=== PATIENT | female | born 1995 | race Caucasian/White ===

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

== ENCOUNTER → 2017-03-23 | Outpatient (CLI) | payer MEDICAID ==
--- NOTE | 2017-03-23 18:02 | REP ---
FOLLOWUP OB ULTRASOUND: 03/23/2017. Comparison: 02/23/2017. Clinical history: Incomplete anatomy screen. Evaluate for the anatomy structures not well seen on prior study. Findings: Sonographic evaluation of the gravid uterus shows a single intrauterine gestation in vertex position. Cervix is 3.6 cm long and closed. Amniotic fluid volume is subjectively normal. There is an anterior placenta with grade 0 maturation characteristics and no previa or abruption. biometry: BPD 6 cm = 24 weeks 3 days HC 22.5 cm = 24 weeks 4 days AC 18.8 cm = 23 weeks 4 days FL 4.2 cm = 23 5 days HL 3.5 cm = 22 weeks 1 day This gives average ultrasound age of 23 weeks 5 days, which precisely matches initial ultrasound dating with EDC 07/15/2017. Estimated weight 63 grams or 1 pound 5 ounces is 64th percentile for dating based on LMP. Anatomy screen shows heart rate 136 and regular. The facial profile view was well seen but the nose and lips view still not seen. The ventricular outflow tracts are well seen and grossly unremarkable. The spine is again incompletely evaluated due to position. The right adnexal region shows a small corpus luteum cyst. Impression: 1. Single intrauterine gestation in vertex presentation with cervix 3.6 cm long and closed, anterior grade 0 placenta without previa or abruption and visually normal amniotic fluid. 2. Heart 136 and regular and size and dates show normal interval growth. 3. Anatomy screen shows a facial profile visualized as are the ventricular outflow tracts, but the upper lip and spine are not well seen. Signed by Kayden Godwin MD 03/23/2017 07:47 P
== END ==
LOC: M RAD 14:17
PROVIDERS: ATTEND Obstetrics & Gynecology
DX: Z34.82 Encounter for supervision of other normal pregnancy, second trimester (principal); Z3A.23 23 weeks gestation of pregnancy

== ENCOUNTER 2017-04-14 00:54 | Emergency (ER) | payer MEDICAID | END 2017-04-14 01:35 | disposition admitted as inpatient to this hospital (09) | LOC: M ED 01:35 | DX: Z53.29 Procedure and treatment not carried out because of patient's decision for other reasons (principal) ==

== ENCOUNTER 2017-04-14 01:19 | Outpatient (CLI) | payer MEDICAID ==
[2017-04-14] MEDS: ONDANSETRON 4 MG ORAL DISINTEGRATING TAB (S0181) SL (02:20)
[2017-04-14 03:34] LABS: MEAN CORPUSCULAR HEMOGLOBIN 30.2 pg (27.0-33.0); MEAN CORPUSCULAR VOLUME 88.9 fl (80.0-96.0); PLATELET COUNT, AUTOMATED 287 10^3/uL (150-450); RED CELL DISTRIBUTION WIDTH 12.7 % (11.5-14.5); WHITE BLOOD COUNT 12.1 10^3/uL (4.0-10.0)
[2017-04-14 03:57] LABS: ALBUMIN 2.8 GM/DL (3.2-5.2); ALKALINE PHOSPHATASE 128 U/L (45-117); ALT/SGPT 24 U/L (12-78); AMYLASE 56 U/L (25-115); AST/SGOT 19 U/L (7-37); BILIRUBIN,DIRECT 0.1 MG/DL (0.0-0.2); BILIRUBIN,TOTAL 0.3 MG/DL (0.2-1.0); TOTAL PROTEIN 6.8 GM/DL (6.4-8.2)
== END 2017-04-14 04:15 | disposition home or self-care (01) ==
LOC: M LDO 01:19
DX: O99.89 Other specified diseases and conditions complicating pregnancy, childbirth and the puerperium (principal); R10.11 Right upper quadrant pain; O21.8 Other vomiting complicating pregnancy; O99.612 Diseases of the digestive system complicating pregnancy, second trimester; K82.8 Other specified diseases of gallbladder; O26.612 Liver and biliary tract disorders in pregnancy, second trimester; O99.282 Endocrine, nutritional and metabolic diseases complicating pregnancy, second trimester; Z3A.26 26 weeks gestation of pregnancy
CPT/HCPCS: 76705

== ENCOUNTER 2017-04-14 20:44 | Outpatient (CLI) | payer MEDICAID ==
[2017-04-14] MEDS ORDERED: LACTATED RINGER'S 1000 ML IV (20:58)
[2017-04-14] MEDS ORDERED: LR 1,000 ML IV (21:00)
[2017-04-14 21:59] LABS: BASO % 0.1 % (0.0-1.0); EOS % 0.1 % (0.0-3.0); IMMATURE GRANULOCYTE % 0.4 % (0-0); LYMPH % 14.1 % (24.0-44.0); MEAN CORPUSCULAR HEMOGLOBIN 30.4 pg (27.0-33.0); MEAN CORPUSCULAR HGB CONC 34.3 g/dl (32.0-36.5); MEAN CORPUSCULAR VOLUME 88.9 fl (80.0-96.0); MONO # 0.5 10^3/uL (0.0-0.8); MONO % 7.8 % (0.0-5.0); NEUTROPHILS # 5.4 10^3/uL (1.8-7.7); NEUTROPHILS % 77.5 % (36.0-66.0); PLATELET COUNT, AUTOMATED 259 10^3/uL (150-450); RED CELL DISTRIBUTION WIDTH 12.6 % (11.5-14.5); WHITE BLOOD COUNT 6.9 10^3/uL (4.0-10.0)
[2017-04-14 22:29] LABS: ALBUMIN 2.6 GM/DL (3.2-5.2); ALBUMIN/GLOBULIN RATIO 0.72 (1.00-1.93); ALKALINE PHOSPHATASE 121 U/L (45-117); ALT/SGPT 21 U/L (12-78); ANION GAP 9 MEQ/L (8-16); AST/SGOT 17 U/L (7-37); BILIRUBIN,TOTAL 0.5 MG/DL (0.2-1.0); BLOOD UREA NITROGEN 6 MG/DL (7-18); CALCIUM LEVEL 7.7 MG/DL (8.5-10.1); CARBON DIOXIDE LEVEL 24 MEQ/L (21-32); CHLORIDE LEVEL 107 MEQ/L (98-107); CREATININE FOR GFR 0.44 MG/DL (0.55-1.02); GLUCOSE, FASTING 69 MG/DL (70-105); POTASSIUM SERUM 3.5 MEQ/L (3.5-5.1); SODIUM LEVEL 140 MEQ/L (136-145); TOTAL PROTEIN 6.2 GM/DL (6.4-8.2)
[2017-04-14] MEDS: FAMOTIDINE 20 MG TAB PO (23:14)
== END 2017-04-15 00:01 | disposition home or self-care (01) ==
LOC: M LDO 20:44
DX: O99.89 Other specified diseases and conditions complicating pregnancy, childbirth and the puerperium (principal); R10.9 Unspecified abdominal pain; O21.2 Late vomiting of pregnancy; O26.613 Liver and biliary tract disorders in pregnancy, third trimester; K83.8 Other specified diseases of biliary tract; K82.9 Disease of gallbladder, unspecified; Z3A.26 26 weeks gestation of pregnancy
CPT/HCPCS: 59025

== ENCOUNTER → 2017-04-15 | Outpatient (CLI) | payer MEDICAID | LOC: M RAD 14:29 | DX: Z36.2 Encounter for other antenatal screening follow-up (principal) | CPT/HCPCS: 76817 ==

== ENCOUNTER → 2017-04-20 | Outpatient (CLI) | payer MEDICAID ==
[2017-04-20 12:24] LABS: GLUCOSE CHALLENGE TEST 1 HOUR 111 MG/DL (LESS THAN 140)
[2017-04-20 12:26] LABS: BASO % 0.1 % (0.0-1.0); EOS # 0.1 10^3/uL (0.0-0.50); EOS % 0.9 % (0.0-3.0); HEMATOCRIT 36.8 % (36.0-47.0); HEMOGLOBIN 12.4 g/dl (12.0-16.0); IMMATURE GRANULOCYTE % 0.5 % (0-0); LYMPH # 1.8 10^3/uL (1.5-6.5); LYMPH % 22.9 % (24.0-44.0); MEAN CORPUSCULAR HEMOGLOBIN 30.2 pg (27.0-33.0); MEAN CORPUSCULAR HGB CONC 33.7 g/dl (32.0-36.5); MEAN CORPUSCULAR VOLUME 89.5 fl (80.0-96.0); MONO # 0.4 10^3/uL (0.0-0.8); MONO % 5.7 % (0.0-5.0); NEUTROPHILS # 5.4 10^3/uL (1.8-7.7); NEUTROPHILS % 69.9 % (36.0-66.0); PLATELET COUNT, AUTOMATED 324 10^3/uL (150-450); RED BLOOD COUNT 4.11 10^6/uL (4.00-5.40); RED CELL DISTRIBUTION WIDTH 12.7 % (11.5-14.5); WHITE BLOOD COUNT 7.8 10^3/uL (4.0-10.0)
== END ==
LOC: M SMT 08:22
DX: Z34.83 Encounter for supervision of other normal pregnancy, third trimester (principal)
CPT/HCPCS: 82950

== ENCOUNTER → 2017-05-12 | Outpatient (CLI) | payer OTHER | LOC: M RAD 07:34 | DX: Z34.82 Encounter for supervision of other normal pregnancy, second trimester (principal); Z3A.30 30 weeks gestation of pregnancy | CPT/HCPCS: 76816 ==

== ENCOUNTER → 2017-06-22 | Outpatient (REF) | payer OTHER | LOC: M LAB REF 17:16 | DX: Z34.83 Encounter for supervision of other normal pregnancy, third trimester (principal) ==

== ENCOUNTER 2017-07-16 18:22 | Inpatient (IN) | payer OTHER ==
[2017-07-16] MEDS ORDERED: FENTANYL 2MCG/ML ROPIVACAINE 0.2% IN 0.9% NACL 200ML IVBAG As Ordered (20:44)
[2017-07-16 20:45] LABS: HEMATOCRIT 37.1 % (36.0-47.0); HEMOGLOBIN 12.2 g/dl (12.0-15.5); MEAN CORPUSCULAR HGB CONC 32.9 g/dl (32.0-36.5); MEAN CORPUSCULAR VOLUME 85.3 fl (80.0-96.0); PLATELET COUNT, AUTOMATED 353 10^3/uL (150-450); RED BLOOD COUNT 4.35 10^6/uL (4.00-5.40); RED CELL DISTRIBUTION WIDTH 12.7 % (11.5-14.5); WHITE BLOOD COUNT 11.3 10^3/uL (4.0-10.0)
[2017-07-16] MEDS ORDERED: ePHEDrine SULFATE 25 MG/5 ML(5MG/ML) SYRINGE As Ordered (22:10)
[2017-07-16] MEDS: OXYTOCIN DRIP 30 UNITS in APPROPRIATE DILUENT 1 EA IV (22:18)
[2017-07-16] MEDS: LACTATED RINGER'S 1000 ML IV (22:18)
[2017-07-16] MEDS: ePHEDrine SULFATE 25 MG/5 ML(5MG/ML) SYRINGE IV (22:18)
[2017-07-16] MEDS ORDERED: REFRIGERATOR IV KEYS XX (22:30)
[2017-07-16] MEDS ORDERED: NALOXONE INJ 0.4 MG/1 ML VIAL (J2310) IV (22:30)
[2017-07-16] MEDS ORDERED: EPIDURAL/PCA KEYS XX (22:30)
[2017-07-16] MEDS ORDERED: LACTATED RINGER'S 1000 ML IV (22:30)
[2017-07-16] MEDS ORDERED: diphenhydrAMINE INJ 50MG/ML VIAL (J1200) IV (22:30)
[2017-07-16] MEDS ORDERED: FENTANYL/ROPIVACAINE/NACL BAG 200 ML EPIDURAL (22:30)
[2017-07-16] MEDS ORDERED: EPIDURAL COMMENT XX (22:30)
[2017-07-16] MEDS ORDERED: ONDANSETRON 4MG/2ML VIAL (J2405) IV (22:30)
[2017-07-16] MEDS: LR 1,000 ML IV (23:27)
[2017-07-17 03:21] LABS: CORD GAS ABE A -9.9; CORD GAS ABE V -5.7; CORD GAS HCO3 V 21.5 MEQ/L; CORD GAS O2 SAT A 32.3 %; CORD GAS O2 SAT V 48.1 %; CORD GAS PCO2 A 66.7 mmHg; CORD GAS PCO2 V 48.1 mmHg; CORD GAS PH A 7.116 UNITS; CORD GAS PH V 7.269 UNITS; CORD GAS PO2 A 20.4 mmHg; CORD GAS PO2 V 22.6 mmHg; CORD GAS SBC A 15.3 MEQ/L; CORD GAS SBC V 18.6 MEQ/L
[2017-07-17] MEDS ORDERED: METHYLERGONOVINE MALEATE 0.2 MG TAB PO (03:30)
[2017-07-17] MEDS ORDERED: RHOGAM 300 MCG (1500 IU) INJ (J2790) IM (03:30)
[2017-07-17] MEDS ORDERED: MEASLES,MUMPS,RUBELLA VACCINE INJ (MMR-II) (90707) SC (03:30)
[2017-07-17] MEDS: IBUPROFEN 800 MG TAB PO ×2 (05:51→17:05)
[2017-07-17] MEDS: DIBUCAINE 1% OINTMENT 30GM TOP (05:52)
[2017-07-17] MEDS: PRENATAL VITAMINS CHEWABLE TABLET PO (08:11)
[2017-07-17] MEDS: ACETAMINOPHEN 500 MG TAB PO ×2 (08:12→21:58)
[2017-07-17] MEDS: OXYTOCIN DRIP 30 UNITS in APPROPRIATE DILUENT 1 EA IV (19:27)
[2017-07-18] MEDS: IBUPROFEN 800 MG TAB PO ×3 (04:55→14:17)
[2017-07-18] MEDS: PRENATAL VITAMINS CHEWABLE TABLET PO (09:16)
[2017-07-18] MEDS: DOCUSATE SODIUM 100 MG CAP PO (12:22)
[2017-07-18] MEDS ORDERED: MOM 30ML SUSPENSION UDC PO (14:15)
[2017-07-19] MEDS: IBUPROFEN 800 MG TAB PO (05:25)
[2017-07-19] MEDS: PRENATAL VITAMINS CHEWABLE TABLET PO (09:43)
== END 2017-07-19 11:03 | disposition home or self-care (01) | DRG 560 ==
LOC: M LDO 18:22 → M OBS 07-17 04:58 → M LDI 19:21
PROVIDERS: Advanced Practice Midwife
PROC: 10E0XZZ Delivery of Products of Conception, External Approach (ICD-10-PCS; principal; 2017-07-17)
PROC: 0KQM0ZZ Repair Perineum Muscle, Open Approach (ICD-10-PCS; 2017-07-17)
DX: O69.81X0 Labor and delivery complicated by cord around neck, without compression, not applicable or unspecified (principal); O70.1 Second degree perineal laceration during delivery; Z37.0 Single live birth; Z3A.39 39 weeks gestation of pregnancy

== ENCOUNTER → 2018-03-24 | Outpatient (REF) | payer OTHER | LOC: M LAB REF 17:12 | DX: Z12.4 Encounter for screening for malignant neoplasm of cervix (principal); R87.610 Atypical squamous cells of undetermined significance on cytologic smear of cervix (ASC-US); N76.0 Acute vaginitis | CPT/HCPCS: 88142 ==

== ENCOUNTER 2018-05-08 04:25 | Emergency (ER) | payer OTHER ==
[~2018-05-08] VITALS: Ht 165.1 cm; Wt 109.1 kg
[~2018-05-08 04:25] MED LIST changes: +IBUP-1114 PO; +MAPA500T2 PO; +PRENTAB9 PO
[2018-05-08 04:33] VITALS: BP 116/71
[2018-05-08] MEDS ORDERED: KETOROLAC 60 MG/2 ML VIAL (J1885) IM ONE (05:00)
--- NOTE | 2018-05-08 13:54 | REP ---
Clinical: Trauma/injury. Technique: AP, lateral, bilateral oblique views of the right ankle. Findings: No acute fracture or dislocation. Skeletal structures and joint spaces are intact and normal. Ankle mortise appears stable. No subcutaneous emphysema or radiodense foreign body. Impression: Normal right ankle radiograph series. Electronically Signed by Vance Pruitt MD 05/08/2018 01:45 P
== END 2018-05-08 05:17 | disposition home or self-care (01) ==
LOC: M ED 05:13
DX: S93.401A Sprain of unspecified ligament of right ankle, initial encounter (principal); X50.9XXA Other and unspecified overexertion or strenuous movements or postures, initial encounter; Y92.410 Unspecified street and highway as the place of occurrence of the external cause; Y93.89 Activity, other specified; J45.909 Unspecified asthma, uncomplicated
CPT/HCPCS: 73610; 96372; 99284; J1885

== ENCOUNTER → 2018-07-24 | Outpatient (REF) | payer OTHER ==
[2018-07-24 14:10] LABS: INFLUENZA A AMPLIFICATION NEGATIVE (NEGATIVE); INFLUENZA B AMPLIFICATION NEGATIVE (NEGATIVE)
== END ==
LOC: M LAB REF 12:57
PROVIDERS: ATTEND Physician Assistant Medical
DX: J11.1 Influenza due to unidentified influenza virus with other respiratory manifestations (principal)

== ENCOUNTER → 2019-08-14 | Outpatient (REF) | payer BC | LOC: M SFHCWAGY 10:31 | PROVIDERS: ATTEND Advanced Practice Midwife | DX: Z01.419 Encounter for gynecological examination (general) (routine) without abnormal findings (principal) ==

== ENCOUNTER 2019-09-04 22:31 | Inpatient (IN) | payer BC, OTHER ==
[~2019-09-04] VITALS: Ht 165.1 cm; Wt 104.5 kg
[2019-09-04 22:55] LABS: HEMATOCRIT 40.7 % (36.0-47.0); HEMOGLOBIN 13.5 g/dl (12.0-15.5); MEAN CORPUSCULAR HEMOGLOBIN 28.6 pg (27.0-33.0); MEAN CORPUSCULAR HGB CONC 33.2 g/dl (32.0-36.5); MEAN CORPUSCULAR VOLUME 86.2 fl (80.0-96.0); PLATELET COUNT, AUTOMATED 343 10^3/uL (150-450); RED BLOOD COUNT 4.72 10^6/uL (4.00-5.40); WHITE BLOOD COUNT 10.9 10^3/uL (4.0-10.0)
[2019-09-04] MEDS ORDERED: IBUP80TA PO (23:15)
[2019-09-04 23:18] LABS: AMPHETAMINES LEVEL URINE NEGATIVE (NEGATIVE); BARBITURATES URINE NEGATIVE (NEGATIVE); BENZODIAZEPINES URINE NEGATIVE (NEGATIVE); CANNABINOIDS URINE POSITIVE (NEGATIVE); COCAINE METABOLITE URINE NEGATIVE (NEGATIVE); METHADONE URINE NEGATIVE (NEGATIVE); OPIATES URINE NEGATIVE (NEGATIVE); PHENCYCLIDINE URINE NEGATIVE (NEGATIVE)
[2019-09-04 23:19] LABS: HCG, SERUM QUALITATIVE NEGATIVE (NEGATIVE)
[2019-09-04 23:40] LABS: ACETAMINOPHEN LEVEL < 2.0 UG/ML (10.0-30.0); ALT/SGPT 26 U/L (12-78); BILIRUBIN,DIRECT 0.1 MG/DL (0.0-0.2); BILIRUBIN,TOTAL 0.4 MG/DL (0.2-1.0); BLOOD UREA NITROGEN 11 MG/DL (7-18); CALCIUM LEVEL 8.6 MG/DL (8.5-10.1); CARBON DIOXIDE LEVEL 25 MEQ/L (21-32); CHLORIDE LEVEL 107 MEQ/L (98-107); CREATININE FOR GFR 0.61 MG/DL (0.55-1.30); ETHYL ALCOHOL (ETHANOL) < 0.003 % (0.000-0.010); GLOMERULAR FILTRATION RATE > 60.0 (>60); GLUCOSE, FASTING 85 MG/DL (70-100); POTASSIUM SERUM 4.1 MEQ/L (3.5-5.1); SALICYLATE LEVEL < 1.7 MG/DL (5.0-30.0); SODIUM LEVEL 141 MEQ/L (136-145); TOTAL PROTEIN 7.9 GM/DL (6.4-8.2)
[2019-09-05] MEDS ORDERED: MIRE1IUD IU (00:40)
[2019-09-05] MEDS ORDERED: traZODone 50 MG TAB PO PRN (02:45)
[2019-09-05] MEDS ORDERED: LORazepam 1 MG TAB PO PRN (02:45)
[2019-09-05] MEDS ORDERED: IBUPROFEN 400MG TAB PO PRN (02:45)
[2019-09-05] MEDS ORDERED: MOM 30ML SUSPENSION UDC PO PRN (02:45)
[2019-09-05] MEDS ORDERED: MAALOX 30 ML SUSP *UDC PO PRN (02:45)
[2019-09-05 03:51] VITALS: BP 131/76
[2019-09-05 06:18] VITALS: BP 111/57
--- NOTE | 2019-09-05 09:54 | MHHPEPDOC ---
[facility] History & Physical History and Physical DATE OF ADMISSION: September 05, 2019 at 02:45 New Patient Anna Gage MRN: N/A Date of : N/A Date of Service: 09/05/2019 Chief Complaint "I had a moment." History of Present Illness The patient is a 24-year-old woman with a history of depression presents after reportedly coming in with a suicidal thought of wanting to jump into a river. She reportedly had this after an argument with her girlfriend where she had had her girlfriend confessed to cheating on her. She reported that she became quite emotional and drove to a spot next the river but reconsidered and came in. She reported that during that she was feeling quite upset and anxious, she reports in the context of her relationship problems she has had increasing low mood and some fatigue as well as insomnia and anxiety. Review Of Systems Depression: As above. Anxiety: As above. Deidre: The patient denies any episodes of euphoria/dysphoria associated with decreased need for sleep, hedonism, talkatively or impulsivity lasting longer than 5 days. Psychotic: The patient denies any experiences of auditory or visual hallucinations. They deny any episodes of paranoia or delusional thinking in the past Trauma: The patient denies any traumatic events associated with nightmares or intrusive thoughts. Borderline: The patient screens negative for borderline personality at this junction. Past Psychiatric History Has no known history of inpatient admissions, suicide attempts, has previously tried Zoloft for reporting anxiety/depression. No current followup. Allergies Please see below. Family Psychiatric History Noncontributory. Social History The patient currently lives with girlfriend of several years. She reports having strained supports and is currently single as of now. No significant legal history or trauma history at this time. Substance Abuse History Reports intermittent marijuana use but denies other illicit drugs or excessive alcohol use. Medical History Noncontributory. Mental Status Examination General: Well dressed with good hygiene Speech: Spontaneous and fluid Thought processes: Mild hopelessness. MSK: Smooth and coordinated gait, no signs of tremors or involuntary orofacial movements Thought content: Future orientated Abstract reasoning, and computation: Intact Description of associations: Intact Description of abnormal or psychotic thoughts: Denies any suicidal or homicidal ideation. Denies any auditory or visual hallucinations. Does not appear to be responding to internal stimuli. Does not appear to be endorsing any bizarre or paranoid ideation. Judgment: fair Insight: fair Orientation: Alert and orientated 3 Cognition: Grossly normal Recent and remote memory: Intact Attention span and concentration: Intact Fund of knowledge: Adequate Mood: "okay" Affect: Mildly dysthymic. Diagnoses Adjustment disorder with disruption of mood and conduct. Assessment and Plan Adjustment disorder: Start sertraline 25 mg daily. Discussed risks, benefits and potential side effects with patient as well as alternatives. Disposition Discharge tomorrow if patient remains without suicidal ideation and makes improvement. Problem List 1. Risk for suicide. 2. Ineffective coping. Initial Treatment Plan 1. Patient was admitted on a 9.39 legal status. 2. Complete history was obtained. 3. With patients permission, family will be contacted and database will be expanded. 4. Patients medication regimen will be reviewed and changed accordingly. 5. Patient will be provided with protected environment. 6. Patient will be treated with individual, group, and milieu therapies. 7. Patient will receive supportive psych-education. 8. Discharge planning will commence immediately. 9. Outpatient follow-up treatment will be strongly recommended. 10. The initial treatment plan will focus initially on: Estimated Length Of Stay 2 days. Time Spent 70 minutes with greater than 50% of time spent on counseling/coordination of care. Tuesday Vital Signs Vital Signs Date Time Temp Pulse Resp B/P (MAP) Pulse Ox O2 Delivery O2 Flow Rate FiO2 09/05/19 06:18 97.8 79 16 111/57 (75) 98 Room Air Laboratory Data 24H Labs Laboratory Tests 2 09/04/19 22:42: Nucleated Red Blood Cells % (auto) 0.0, Anion Gap 9, Glomerular Filtration Rate > 60.0, Calcium Level 8.6, Total Bilirubin 0.4, Direct Bilirubin 0.1, Aspartate Amino Transf (AST/SGOT) 10, Alanine Aminotransferase (ALT/SGPT) 26, Alkaline Phosphatase 103, Total Protein 7.9, Albumin 4.0, Albumin/Globulin Ratio 1.0L, Thyroid Stimulating Hormone (TSH) 2.790, Human Chorionic Gonadotropin, Qual NEGATIVE, Salicylates Level < 1.7L, Urine Opiates Screen NEGATIVE, Urine Methado ne Screen NEGATIVE, Acetaminophen Level < 2.0L, Urine Barbiturates Screen NEGATIVE, Urine Phencyclidine Screen NEGATIVE, Urine Amphetamines Screen NEGATIVE, Urine Benzodiazepines Screen NEGATIVE, Urine Cocaine Metabolite Screen NEGATIVE, Urine Cannabinoids Screen POSITIVEH, Ethyl Alcohol Level < 0.003 CBC/BMP Laboratory Tests 09/04/19 22:42 Medications Scheduled Levonorgestrel (Mirena) 1 Each Iud, 1 EACH IU ASDIRECTED, (Reported) Sertraline HCl (Sertraline HCl) 25 Mg Tablet, 25 MG PO DAILY for mood Scheduled PRN Hydroxyzine HCl (Hydroxyzine HCl) 10 Mg Tablet, 1 TAB PO BID PRN for ANXIETY/AGITATION Allergies Coded Allergies: No Known Allergies (Verified , 10/22/02) ALBA SÁNCHEZ DO September 05, 2019 09:54
[2019-09-05] MEDS ORDERED: SERTRALINE HCL 25 MG TABLET PO ONE (10:45)
--- NOTE | 2019-09-05 11:12 | HPEPDOC ---
General Date of Admission September 05, 2019 at 02:45 Date of Service: September 05, 2019 Chief Complaint The patient is a 24-year-old female Who presented to the ER with depression / dark thoughts. History of Present Illness Patient is a 24 year old female with no significant PMHx who presented to the ER with dark thoughts and was admitted to [facility] under the care of psychiatry. Hospitalist service was consulted for medical screening evaluation. Patient denies any CP, SOB, Palpitations, N/V, abdominal pain, C/D, urinary discomfort, fevers/ chills. Denies headaches. Reports her appetite is poor, but has not experienced any changes in her weight. Home Medications Scheduled Levonorgestrel (Mirena) 1 Each Iud, 1 EACH IU ASDIRECTED, (Reported) Scheduled PRN Ibuprofen (Ibuprofen) 800 Mg Tablet, 800 MG PO TID PRN for PAIN OR FEVER, (Reported) Allergies Coded Allergies: No Known Allergies (Verified , 10/22/02) Past Medical History Medical History No significant prior medical history reported Surgical History Cleft lip repair Bilateral ear tube placement Correction of right eye Fibroadenoma resection of right breast Family History - Mother with a history of heart failure and breast cancer - Father leukemia and diabetes Social History - Patient reports that she uses sulfate for the last 1 year. Denies the use of cigarettes, reports social alcohol use and reports that she has used marijuana in the last 1 year - Denies recent travel or sick contacts - Lives with fianc and son - Occupation; patient is a manager fitness at [employer] Review of Systems Other systems 10 point review of systems complete, all negative otherwise stated in HPI Vital Signs - Vitals: BP 119/72, HR 85, RR 18, Sat 100%RA, Temp 97.8F - General: Lying in bed, No acute distress, Speaking in full sentences, AAOx3 - HEENT: NC, AT, PERRLA - CVS: RRR, +S1S2 - Lungs: Fair air entry bilaterally, No appreciable wheezing / rales / rhonchi - Abdomen: Soft, Non-distended, Non-tender - Extremities: No lower extremity edema, No calf tenderness - Neuro: No focal motor or sensory deficit - Skin: No visible rashes Laboratory Data Labs 24H Laboratory Tests 2 09/04/19 22:42: Nucleated Red Blood Cells % (auto) 0.0, Anion Gap 9, Glomerular Filtration Rate > 60.0, Calcium Level 8.6, Total Bilirubin 0.4, Direct Bilirubin 0.1, Aspartate Amino Transf (AST/SGOT) 10, Alanine Aminotransferase (ALT/SGPT) 26, Alkaline Phosphatase 103, Total Protein 7.9, Albumin 4.0, Albumin/Globulin Ratio 1.0L, Thyroid Stimulating Hormone (TSH) 2.790, Human Chorionic Gonadotropin, Qual NEGATIVE, Salicylates Level < 1.7L, Urine Opiates Screen NEGATIVE, Urine Methadone Screen NEGATIVE, Acetaminophen Level < 2.0L, Urine Barbiturates Screen NEGATIVE, Urine Phencyclidine Screen NEGATIVE, Urine Amphetamines Screen NEGATIVE, Urine Benzodiazepines Screen NEGATIVE, Urine Cocaine Metabolite Screen NEGATIVE, Urine Cannabinoids Screen POSITIVEH, Ethyl Alcohol Level < 0.003 CBC/BMP Laboratory Tests 09/04/19 22:42 Plan / VTE VTE Prophylaxis Ordered?: Yes Plan Plan Depression - Patient has been admitted to inpatient mental health unit under the care of psychiatry - Currently being managed by psychiatry No significant PMHx Mild leukocytosis - Remains afebrile / hemodynamically stable - ROS is negative for any infection - No antibiotics at this time DVT prophylaxis - Will c/w early ambulation Thank you for this consultation; please reconsult as needed PATEL GOLDSMITH MD September 05, 2019 11:12
[2019-09-05 18:03] VITALS: BP 132/68
[2019-09-06 06:24] VITALS: BP 133/68
[2019-09-06] MEDS ORDERED: SERTRALINE HCL 25 MG TABLET PO SCH (09:00)
--- NOTE | 2019-09-06 09:57 | MHDSPDOC ---
[facility] Discharge Summary Discharge Summary DATE OF ADMISSION: September 05, 2019 at 02:45 DATE OF DISCHARGE: 09/06/2019 Discharge Anna Gage MRN: N/A Date of : N/A Date of Service: 09/06/2019 Diagnoses Adjustment disorder with disruption of mood and conduct. History of Present Illness The patient is a 24-year-old woman with a history of depression presents after reportedly coming in with a suicidal thought of wanting to jump into a river. She reportedly had this after an argument with her girlfriend where she had had her girlfriend confessed to cheating on her. She reported that she became quite emotional and drove to a spot next the river but reconsidered and came in. She reported that during that she was feeling quite upset and anxious, she reports in the context of her relationship problems she has had increasing low mood and some fatigue as well as insomnia and anxiety. Consultants Involved Hospitalist/PCP screening Treatment and Progress On The Unit The patient was admitted to the inpatient unit where her suicidality rapidly resolved without any particular problem. She was started on sertraline 25 mg, observed overnight with positive effect. She had been denying suicidal and homicidal ideation through the entirety of her admission. She made good progress, became more engaged and euthymic, and subsequently requested discharge. After the observation, she did not meet criteria for involuntary extension and thus was discharged at her request. Discharge Assessment A 24-year-old woman with a history of adjustment problems related to her current situation with her significant other that she has broken up with. She was treated with appropriate medication in order to treat her depression. She does well and subsequently is triaged for discharge at her request. The patient at the time of discharge did not meet criteria for involuntary admission/extension due to having a normal mental status exam, fair insight into the situation, They are engaged in the discharge process, as well as being friendly and amenable in behavioral control and havent been engaging in any observed concerning behavior or ideation recently. They decline voluntary extension/admission at this time and must be discharged in good jewell, as Im unable to make a case for holding the patient against their will. They may have historical risk factors of admissions and other interactions with psychiatry however, those are not modifiable from a clinical perspective. The patient will need to be discharged in good jewell. Mental Status Examination General: Well dressed with good hygiene Speech: Spontaneous and fluid Thought processes: Linear and logical MSK: Smooth and coordinated gait, no signs of tremors or involuntary orofacial movements Thought content: Future orientated Abstract reasoning, and computation: Intact Description of associations: Intact Description of abnormal or psychotic thoughts: Denies any suicidal or homicidal ideation. Denies any auditory or visual hallucinations. Does not appear to be responding to internal stimuli. Does not appear to be endorsing any bizarre or paranoid ideation. Judgment: fair Insight: fair Orientation: Alert and orientated 3 Cognition: Grossly normal Recent and remote memory: Intact Attention span and concentration: Intact Fund of knowledge: Adequate Mood: "okay" Affect: Euthymic with a full range Follow Up The social work team worked during the predischarge meeting in order to evaluate for further issues of lethality address them fully before discharge. They worked on safety planning with the patient's family members in order to ensure that the patient will have a safe and effective discharge. Time Spent The amount of time spent in the coordination of care for this patient was approximately 45 minutes. Vital Signs/I&Os Vital Signs Date Time Temp Pulse Resp B/P (MAP) Pulse Ox O2 Delivery O2 Flow Rate FiO2 09/06/19 06:24 99.4 66 18 133/68 (89) 97 Room Air Medications Scheduled Levonorgestrel (Mirena) 1 Each Iud, 1 EACH IU ASDIRECTED, (Reported) Sertraline HCl (Sertraline HCl) 25 Mg Tablet, 25 MG PO DAILY for mood for 7 Days, #7 Scheduled PRN Hydroxyzine HCl (Hydroxyzine HCl) 10 Mg Tablet, 1 TAB PO BID PRN for ANXIETY/AGITATION for 7 Days, #7 Allergies Coded Allergies: No Known Allergies (Verified , 10/22/02) ALBA SÁNCHEZ DO September 06, 2019 09:57
[2019-09-06] MEDS ORDERED: SERT25TA21 PO (10:29)
[2019-09-06] MEDS ORDERED: HYDR-643 PO (10:29)
== END 2019-09-06 14:25 | disposition home or self-care (01) | DRG 755 ==
LOC: M ED 22:31 → ENRESERV 09-05 01:52 → M ED INP 09-05 02:45 → M PSY 09-05 03:30
PROVIDERS: ADMIT Psychiatry & Neurology Psychiatry; ATTEND Psychiatry & Neurology Addiction Medicine
DX: F43.25 Adjustment disorder with mixed disturbance of emotions and conduct (principal); D72.829 Elevated white blood cell count, unspecified; Z79.899 Other long term (current) drug therapy

== ENCOUNTER → 2020-04-25 | Outpatient (CLI) | payer SELFPAY ==
[~2020-04-25] MED LIST changes: +HYDR-643 PO; +IBUP80TA PO; +MIRE1IUD IU; +SERT25TA21 PO
== END ==
LOC: M LABSMTC 11:47
PROVIDERS: ATTEND Pediatrics
DX: Z20.822 Contact with and (suspected) exposure to COVID-19 (principal)

== ENCOUNTER → 2020-08-12 | Outpatient (REF) | payer BC | LOC: M SFHCWAGY 16:57 | PROVIDERS: ATTEND Advanced Practice Midwife | DX: Z12.4 Encounter for screening for malignant neoplasm of cervix (principal) ==

== ENCOUNTER → 2020-11-21 | Outpatient (CLI) | payer BC | LOC: M PLALAB 14:41 | PROVIDERS: ATTEND Advanced Practice Midwife | DX: N91.2 Amenorrhea, unspecified (principal) ==

== ENCOUNTER 2021-06-05 10:23 | Emergency (ER) | payer BC ==
[~2021-06-05] VITALS: Ht 167.6 cm; Wt 117.7 kg
[2021-06-05] MEDS ORDERED: SERT50TA29 PO (11:10)
[2021-06-05] MEDS ORDERED: TOPI50TA9 PO (11:10)
[2021-06-05] MEDS ORDERED: KETO10TAB PO (12:42)
[2021-06-05] MEDS ORDERED: METH-1164 PO (12:43)
[2021-06-05 12:56] VITALS: BP 120/64
== END 2021-06-05 12:57 | disposition home or self-care (01) ==
LOC: M ED 10:23
DX: M54.40 Lumbago with sciatica, unspecified side (principal); J45.909 Unspecified asthma, uncomplicated; F41.9 Anxiety disorder, unspecified; G43.909 Migraine, unspecified, not intractable, without status migrainosus; G89.29 Other chronic pain; Z79.899 Other long term (current) drug therapy

== ENCOUNTER → 2021-12-22 | Outpatient (REF) | payer BC ==
[~2021-12-22] MED LIST changes: +KETO10TAB PO; +METH-1164 PO; +SERT50TA29 PO; +TOPI50TA9 PO
== END ==
LOC: M SFHCWAGY 13:21
PROVIDERS: ATTEND Advanced Practice Midwife
DX: Z12.4 Encounter for screening for malignant neoplasm of cervix (principal)

== ENCOUNTER → 2022-01-12 | Outpatient (CLI) | payer BC ==
[2022-01-12 14:00] LABS: HEMOGLOBIN 12.1 g/dl (12.0-15.5); MEAN CORPUSCULAR HEMOGLOBIN 26.2 pg (27.0-33.0); MEAN CORPUSCULAR VOLUME 84.6 fl (80.0-96.0); PLATELET COUNT, AUTOMATED 374 10^3/uL (150-450); RED BLOOD COUNT 4.61 10^6/uL (4.00-5.40); WHITE BLOOD COUNT 7.2 10^3/uL (4.0-10.0)
[2022-01-12 14:48] LABS: ALBUMIN 3.7 GM/DL (3.2-5.2); ALT/SGPT 18 U/L (12-78); BILIRUBIN,TOTAL 0.5 MG/DL (0.2-1.0); BLOOD UREA NITROGEN 13 MG/DL (7-18); CARBON DIOXIDE LEVEL 28 MEQ/L (21-32); CHLORIDE LEVEL 107 MEQ/L (98-107); CHOLESTEROL LEVEL 142 MG/DL (<200); CHOLESTEROL RISK RATIO 2.897 (<5); CREATININE FOR GFR 0.76 MG/DL (0.55-1.30); FERRITIN 6 NG/ML (8-252); FREE T4 0.93 NG/DL (0.76-1.46); GLOMERULAR FILTRATION RATE > 60.0 (>60); GLUCOSE, FASTING 74 MG/DL (70-100); HDL CHOLESTEROL 49 MG/DL (>40); IRON (FE) 44 UG/DL (50-170); LDL CHOLESTEROL 77 MG/DL (<100); NON-HDL-C 93 MG/DL; SODIUM LEVEL 139 MEQ/L (136-145); TOTAL PROTEIN 7.4 GM/DL (6.4-8.2); TRIGLYCERIDES LEVEL 79 MG/DL (<150)
[2022-01-12 15:17] LABS: TOTAL 25(OH) VITAMIN D 21.2 NG/ML (30.0-100.0)
== END ==
LOC: M PLALAB 09:17
PROVIDERS: ATTEND Physician Assistant Medical
DX: E55.9 Vitamin D deficiency, unspecified (principal); R63.4 Abnormal weight loss; R79.89 Other specified abnormal findings of blood chemistry; E78.00 Pure hypercholesterolemia, unspecified

== ENCOUNTER → 2022-03-31 | Outpatient (CLI) | payer BC | LOC: M RAD 16:49 | PROVIDERS: ATTEND Physician Assistant | DX: J32.8 Other chronic sinusitis (principal) ==

== ENCOUNTER → 2022-05-10 | Outpatient (CLI) | payer BC ==
[2022-05-10 10:02] LABS: HEMATOCRIT 41.6 % (36.0-47.0); HEMOGLOBIN 13.3 g/dl (12.0-15.5); MEAN CORPUSCULAR HEMOGLOBIN 28.8 pg (27.0-33.0); PLATELET COUNT, AUTOMATED 333 10^3/uL (150-450); RED BLOOD COUNT 4.62 10^6/uL (4.00-5.40); WHITE BLOOD COUNT 6.5 10^3/uL (4.0-10.0)
[2022-05-10 13:04] LABS: ALBUMIN 3.5 G/DL (3.2-5.2); ALKALINE PHOSPHATASE 97 U/L (46-116); ALT/SGPT 16 U/L (7.0-40); AST/SGOT 18 U/L (<34); BILIRUBIN,TOTAL 0.5 MG/DL (0.3-1.2); BLOOD UREA NITROGEN 13 MG/DL (9-23); CARBON DIOXIDE LEVEL 25 MMOL/L (20-31); CHLORIDE LEVEL 106 MMOL/L (98-107); CHOLESTEROL LEVEL 153 MG/DL (<200); CHOLESTEROL RISK RATIO 3.31 (<5); CREATININE FOR GFR 0.71 MG/DL (0.55-1.30); FERRITIN 19.6 NG/ML (7.3-270.7); GLOMERULAR FILTRATION RATE > 60.0 (>60); GLUCOSE, FASTING 89 MG/DL (60-100); HDL CHOLESTEROL 46.2 MG/DL (>40); IRON (FE) 82 UG/DL (50-170); NON-HDL-C 107 MG/DL; POTASSIUM SERUM 4.6 MMOL/L (3.5-5.1); SODIUM LEVEL 141 MMOL/L (136-145); TOTAL 25(OH) VITAMIN D 32.5 NG/ML (20.0-100.0); TOTAL PROTEIN 6.8 G/DL (5.7-8.2); TRIGLYCERIDES LEVEL 69 MG/DL (<150)
== END ==
LOC: M LAB 08:26
PROVIDERS: ATTEND Physician Assistant Medical
DX: D50.9 Iron deficiency anemia, unspecified (principal); E78.00 Pure hypercholesterolemia, unspecified; R79.89 Other specified abnormal findings of blood chemistry; E55.9 Vitamin D deficiency, unspecified

== ENCOUNTER 2022-12-28 13:30 | Emergency (ER) | payer BC ==
[~2022-12-28] VITALS: Ht 167.6 cm; Wt 106.8 kg
[~2022-12-28 13:30] MED LIST changes: +TOPI-254 PO; -TOPI50TA9 PO
[2022-12-28] MEDS ORDERED: ONDANSETRON 4MG 2ML VIAL IV ONE (15:30)
[2022-12-28] MEDS ORDERED: NS 1,000 ML IV ONE (15:30)
[2022-12-28] MEDS ORDERED: MORPHINE 2 MG/ML 1ML VIAL IV ONE (15:30)
[2022-12-28 16:09] LABS: BASO % 0.3 % (0.0-1.0); EOS # 0.1 10^3/uL (0.0-0.5); HEMATOCRIT 41.8 % (36.0-47.0); HEMOGLOBIN 13.9 g/dl (12.0-15.5); LYMPH # 1.3 10^3/uL (1.5-5.0); LYMPH % 14.6 % (24.0-44.0); MEAN CORPUSCULAR HEMOGLOBIN 29.5 pg (27.0-33.0); MEAN CORPUSCULAR HGB CONC 33.3 g/dl (32.0-36.5); MEAN CORPUSCULAR VOLUME 88.7 fl (80.0-96.0); MONO # 0.7 10^3/uL (0.0-0.8); MONO % 7.3 % (2.0-8.0); NEUTROPHILS # 6.9 10^3/uL (1.5-8.5); NEUTROPHILS % 76.4 % (36.0-66.0); PLATELET COUNT, AUTOMATED 388 10^3/uL (150-450); RED BLOOD COUNT 4.71 10^6/uL (4.00-5.40); WHITE BLOOD COUNT 9.1 10^3/uL (4.0-10.0)
[2022-12-28] MEDS ORDERED: MORPHINE 4 MG/ML 1ML VIAL IV ONE ×2 (16:50→18:30)
[2022-12-28 16:54] LABS: BLOOD UREA NITROGEN 9 MG/DL (9-23); CALCIUM LEVEL 8.9 MG/DL (8.5-10.1); CARBON DIOXIDE LEVEL 29 MMOL/L (20-31); CHLORIDE LEVEL 101 MMOL/L (98-107); CREATININE FOR GFR 0.78 MG/DL (0.55-1.30); GLOMERULAR FILTRATION RATE > 60.0 (>60); GLUCOSE, FASTING 95 MG/DL (60-100); POTASSIUM SERUM 4.3 MMOL/L (3.5-5.1); SODIUM LEVEL 136 MMOL/L (136-145)
[2022-12-28 16:59] LABS: ERYTHROCYTE SEDIMENTATION RATE 71 mm/hr (0-20)
[2022-12-28 18:09] VITALS: BP 149/65; TEMP 97.3; O2SAT 98
[2022-12-28] MEDS ORDERED: PERC5TAB12 PO (19:38)
== END 2022-12-28 19:53 | disposition home or self-care (01) ==
LOC: M ED 13:30
DX: G89.18 Other acute postprocedural pain (principal); J34.2 Deviated nasal septum; J45.909 Unspecified asthma, uncomplicated; Z79.811 Long term (current) use of aromatase inhibitors; Z79.899 Other long term (current) drug therapy; Z79.1 Long term (current) use of non-steroidal anti-inflammatories (NSAID)
CPT/HCPCS: 80048; 84702; 85025; 85652; 86140; 96361; 96374; 96375; 96376; 99284; J2405

== ENCOUNTER → 2023-01-04 | Outpatient (REF) | payer BC ==
[~2023-01-04] MED LIST changes: +PERC5TAB12 PO
== END ==
LOC: M SFHCWAGY 13:04
PROVIDERS: ATTEND Advanced Practice Midwife
DX: Z12.4 Encounter for screening for malignant neoplasm of cervix (principal)

== ENCOUNTER → 2024-02-23 | Outpatient (REF) | payer BC, OTHER ==
[~2024-02-23] MED LIST changes: +TOPI-21 PO; -TOPI-254 PO
[2024-02-23 17:40] LABS: APPEARANCE, URINE CLOUDY (CLEAR); BACTERIA, URINE AUTO 1+ (NEGATIVE); BILIRUBIN, URINE AUTO NEGATIVE (NEGATIVE); BLOOD, URINE BLOOD 3+ (NEGATIVE); CALCIUM OXALATE CRYSTALS SMALL; COLOR, URINE YELLOW (YELLOW); GLUCOSE, URINE (UA) AUTO NEGATIVE (NEGATIVE); KETONE, URINE AUTO NEGATIVE (NEGATIVE); LEUKOCYTE ESTERASE, URINE AUTO 3+ (NEGATIVE); MUCUS, URINE SMALL (NEGATIVE); NITRITE, URINE AUTO NEGATIVE (NEGATIVE); PROTEIN, URINE AUTO 1+ mg/dL (NEGATIVE); RBC, URINE AUTO TNTC /HPF (0-3); SQUAMOUS EPITHELIAL CELL UR AU 14 /HPF (0-6); WBC, URINE AUTO 30 /HPF (0-3)
== END ==
LOC: M LAB REF 16:48
PROVIDERS: ATTEND Physician Assistant
DX: N39.0 Urinary tract infection, site not specified (principal)

== ENCOUNTER → 2024-05-14 | Outpatient (REF) | payer OTHER | LOC: M LAB REF 12:22 | PROVIDERS: ATTEND Physician Assistant Medical | DX: B34.9 Viral infection, unspecified (principal) ==

== ENCOUNTER 2025-04-12 05:11 | Emergency (ER) | payer OTHER ==
[~2025-04-12] VITALS: Ht 167.6 cm; Wt 132.5 kg
[2025-04-12] MEDS ORDERED: HYDR-3363 (07:25)
[2025-04-12] MEDS ORDERED: VITA1CAP25 (07:25)
[2025-04-12] MEDS ORDERED: OXYB-54 (07:25)
[2025-04-12] MEDS ORDERED: BUPR-670 (07:25)
[2025-04-12] MEDS: NS (Normal Saline) 0.9% 1,000 ML IV ONE (09:29)
[2025-04-12] MEDS: ALBUTEROL 90 MCG/ACT 8 GM HFA INHALER INH ONE (09:37)
[2025-04-12 10:15] LABS: HCG, SERUM QUALITATIVE NEGATIVE (NEGATIVE)
[2025-04-12] MEDS: guaiFENesin/CODEINE SYRUP 5 ML UDC PO ONE (10:18)
[2025-04-12] MEDS: KETOROLAC 30 MG/ML 1 ML VIAL IV ONE (10:19)
[2025-04-12] MEDS ORDERED: VENTAER INH (11:38)
[2025-04-12] MEDS ORDERED: DEXA4TA PO (11:38)
[2025-04-12 11:41] VITALS: O2SAT 97
[2025-04-12 11:42] VITALS: BP 110/57; O2SAT 97
[2025-04-12] MEDS ORDERED: GUAI1SOL7 PO (11:44)
[2025-04-12 11:50] VITALS: TEMP 97.5
== END 2025-04-12 11:54 | disposition home or self-care (01) ==
LOC: M ED 05:11
DX: U07.1 COVID-19 (principal); J98.8 Other specified respiratory disorders; J45.909 Unspecified asthma, uncomplicated; F41.9 Anxiety disorder, unspecified; F32.A Depression, unspecified; F17.290 Nicotine dependence, other tobacco product, uncomplicated; F12.10 Cannabis abuse, uncomplicated
CPT/HCPCS: 71046; 84703; 87486; 87581; 87633; 87798; 94640; 96361; 96374; 96375; 99284; J1100; J1885